=== PATIENT | male | born 1985 | race African-American/Black ===

== ENCOUNTER 2019-01-26 17:14 | Emergency (ER) | payer MEDICAID ==
[~2019-01-26] VITALS: Ht 175.3 cm; Wt 80.0 kg
[2019-01-26] MEDS ORDERED: IBUPROFEN 600MG TABLET PO ONE (20:15)
[2019-01-26 20:29] VITALS: BP 130/91
== END 2019-01-26 20:30 | disposition home or self-care (01) ==
LOC: ER 17:14
DX: M79.18 Myalgia, other site (principal); E11.9 Type 2 diabetes mellitus without complications; V49.49XA Driver injured in collision with other motor vehicles in traffic accident, initial encounter; Y93.89 Activity, other specified; Y92.89 Other specified places as the place of occurrence of the external cause; Y99.8 Other external cause status
CPT/HCPCS: 99283